=== PATIENT | female | born 1995 | race Caucasian/White ===

== ENCOUNTER 2022-06-11 19:38 | Emergency (ER) | payer SELFPAY ==
[~2022-06-11] VITALS: Ht 157.5 cm; Wt 65.8 kg
[2022-06-11 20:05] VITALS: BP 101/58
--- NOTE | 2022-06-11 20:14 | NUR ---
TO LOBBY FOLLOWING TRIAGE AFTER OBTAINING UA
--- NOTE | 2022-06-11 20:40 | NUR ---
TO BED 6 FROM LOBBY
[2022-06-11] MEDS ORDERED: CEPH250C16 PO (20:54)
--- NOTE | 2022-06-11 21:20 | NUR ---
Pt coming from home ambulatory with steady gait. Pt c/o burining sensation and frequency upon urination. pt is A&Ox4. Skin intact. NKA. No known medical conditions. No chest pain and no sob. Denies n/v. Bed in lowest position.
[2022-06-11 22:01] VITALS: BP 115/76
--- NOTE | 2022-06-11 22:02 | NUR ---
Patient discharged with v/s stable. Written and verbal after care instructions given and explained. Patient verbalized understanding. Ambulatory with steady gait. All questions addressed prior to discharge. Advised to follow up with PMD.
== END 2022-06-11 22:02 | disposition home or self-care (01) ==
LOC: MED 19:38
DX: N39.0 Urinary tract infection, site not specified (principal); R31.9 Hematuria, unspecified
CPT/HCPCS: 81002; 81025; 99283